=== PATIENT | female | born 1985 | race Caucasian/White ===

== ENCOUNTER 2016-05-25 07:49 | Emergency (ER) | payer OTHER ==
[~2016-05-25] VITALS: Ht 162.6 cm; Wt 86.2 kg
[~2016-05-25 07:49] MED LIST: CYCL10TA2 PO; METH4TAB2 PO; NAPR500T8 PO; PNV1TABL25 PO
[2016-05-25] MEDS ORDERED: IV NORMAL SALINE 1000ML BAG 1,000 ML IV ONE (08:00)
[2016-05-25] MEDS ORDERED: DICYCLOMINE 20 MG/2 ML AMPUL. IM ONE (08:00)
[2016-05-25] MEDS ORDERED: ONDANSETRON PF 4 MG/2 ML VIAL. IV ONE (08:00)
--- NOTE | 2016-05-25 08:06 | PHYS DOC ---
Past Medical History Past Medical History: No Pertinent History Additional Past Medical Histor: lupus,fibromyalgia, "allergy induced asthma", SAMANTHA'S DISEASE Past Surgical History: No Surgical History Additional Past Surgical Histo: tubes in ears Alcohol Use: Occasionally Drug Use: None Adult General Chief Complaint Chief Complaint: NAUSEA/VOMITING/[facility] HPI Patient is a 30 year old female presents to the emergency department with a history of upper abdominal pain and discomfort. Patient states she is nauseated , has had diarrhea since 5:30 today. She states she is having sharp pains. Had taken immodium for the diarrhea without relief. Patient states she had pizza for dinner last night, denies any family members having diarrhea. Patient denies fevers, has had chills. Patient states she has had approx. 5+ diarrhea stools with no blood noted. Review of Systems Review of Systems Constitutional: Denies fever or chills [] Eyes: Denies change in visual acuity, redness, or eye pain [] HENT: Denies nasal congestion or sore throat [] Respiratory: Denies cough or shortness of breath [] Cardiovascular: No additional information not addressed in HPI [] GI: upper abdominal pain, nausea, denies vomiting, bloody stools or diarrhea. C/ o diarrhea stools [] : Denies dysuria or hematuria [] Musculoskeletal: Denies back pain or joint pain [] Integument: Denies rash or skin lesions [] Neurologic: Denies headache, focal weakness or sensory changes [] Current Medications Current Medications Current Medications Medications (Trade) Dose Ordered Sig/Vandana Start Time Stop Time Status Last Admin Dose Admin Dicyclomine HCl (Bentyl) 10 mg 1X ONCE 05/25/16 08:00 05/25/16 08:07 DC 05/25/16 08:39 10 MG Ondansetron HCl (Zofran) 4 mg 1X ONCE 05/25/16 08:00 05/25/16 08:07 DC 05/25/16 08:39 4 MG Sodium Chloride (Iv Sodium Chloride 0.9% 1000ml Bag) 1,000 ml @ 1,000 mls/hr 1X ONCE 05/25/16 08:00 05/25/16 08:59 DC 05/25/16 08:40 1,000 MLS/HR Allergies Allergies Allergies Coded Allergies Type Severity Reaction Last Updated Verified Sulfa (Sulfonamide Antibiotics) Allergy Intermediate rash 07/18/13 Yes adhesive tape Allergy Intermediate rash 06/17/15 Yes Physical Exam Physical Exam Constitutional: Well developed, well nourished, no acute distress, non-toxic appearance. [] HENT: Normocephalic, atraumatic, bilateral external ears normal, oropharynx moist, no oral exudates, nose normal. [] Eyes: PERRLA, EOMI, conjunctiva normal, no discharge. [] Neck: Normal range of motion, no tenderness, supple, no stridor. [] Cardiovascular:Heart rate regular rhythm, no murmur [] Lungs & Thorax: Bilateral breath sounds clear to auscultation [] Abdomen: Bowel sounds hypoactive, soft, no tenderness, no masses, no pulsatile masses. No rebound tenderness, no guarding noted. Skin: Warm, dry, no erythema, no rash. [] Back: No tenderness Extremities: No tenderness, no cyanosis, no clubbing, ROM intact, no edema. [] Neurologic: Alert and oriented X 3, normal motor function, normal sensory function, no focal deficits noted. [] Psychologic: Affect normal, judgement normal, mood normal. [] Current Patient Data Vital Signs Vital Signs Date Time Temp Pulse Resp B/P Pulse Ox O2 Delivery O2 Flow Rate FiO2 05/25/16 07:55 98.3 92 20 146/66 99 Room Air 98.3 Lab Values Laboratory Tests Test 05/25/16 08:05 05/25/16 08:16 White Blood Count 12.1x10^3/uL (4.0-11.0) H Red Blood Count 5.18x10^6/uL (3.50-5.40) Hemoglobin 14.6g/dL (12.0-15.5) Hematocrit 44.8% (36.0-47.0) Mean Corpuscular Volume 86fL (79-100) Mean Corpuscular Hemoglobin 28pg (25-35) Mean Corpuscular Hemoglobin Concent 33g/dL (31-37) Red Cell Distribution Width 14.4% (11.5-14.5) Platelet Count 246x10^3/uL (140-400) Neutrophils (%) (Auto) 73% (31-73) Lymphocytes (%) (Auto) 19% (24-48) L Monocytes (%) (Auto) 7% (0-9) Eosinophils (%) (Auto) 1% (0-3) Basophils (%) (Auto) 0% (0-3) Neutrophils # (Auto) 8.9x10^3uL (1.8-7.7) H Lymphocytes # (Auto) 2.3x10^3/uL (1.0-4.8) Monocytes # (Auto) 0.8x10^3/uL (0.0-1.1) Eosinophils # (Auto) 0.1x10^3/uL (0.0-0.7) Basophils # (Auto) 0.1x10^3/uL (0.0-0.2) Sodium Level 139mmol/L (136-145) Potassium Level 5.3mmol/L (3.5-5.1) H Chloride Level 103mmol/L (98-107) Carbon Dioxide Level 24mmol/L (21-32) Anion Gap 12 (6-14) Blood Urea Nitrogen 15mg/dL (7-20) Creatinine 0.7mg/dL (0.6-1.0) Estimated GFR (Cockcroft-Gault) 99.6 BUN/Creatinine Ratio 21 (6-20) H Glucose Level 100mg/dL (70-99) H Calcium Level 9.2mg/dL (8.5-10.1) Total Bilirubin 0.3mg/dL (0.2-1.0) Aspartate Amino Transferase (AST) 33U/L (15-37) Alanine Aminotransferase (ALT) 33U/L (14-59) Alkaline Phosphatase 92U/L (46-116) Total Protein 8.3g/dL (6.4-8.2) H Albumin 3.9g/dL (3.4-5.0) Albumin/Globulin Ratio 0.9 (1.0-1.7) L Amylase Level 90U/L (25-115) Lipase 169U/L (73-393) Urine Collection Type Unknown Urine Color Yellow Urine Clarity Clear Urine pH 6.0 Urine Specific Barre <=1.005 Urine Protein Negativemg/dL (NEG-TRACE) Urine Glucose (UA) Negativemg/dL (NEG) Urine Ketones (Stick) Negativemg/dL (NEG) Urine Blood Negative (NEG) Urine Nitrite Negative (NEG) Urine Bilirubin Negative (NEG) Urine Urobilinogen Dipstick 0.2mg/dL (0.2 mg/dL) Urine Leukocyte Esterase Small (NEG) Urine RBC 0/HPF (0-2) Urine WBC 5-10/HPF (0-4) Urine Squamous Epithelial Cells Mod/LPF Urine Bacteria 0/HPF (0-FEW) Laboratory Tests 05/25/16 08:05 Laboratory Tests 05/25/16 08:05 EKG EKG EKG completed at 1010 heart rate 78 sinus rhythm noted. No STEMI per Dr. Cooley[] Radiology/Procedures Radiology/Procedures [facility] [address] [place] [address] IMAGING REPORT Signed PATIENT: AMY CARLOS ACCOUNT: [id number] : 1985 LOCATION: ER AGE: 30 SEX: F EXAM STATUS: REG ER ORD. PHYSICIAN: TIO OSULLIVAN NP REASON: upper abdominal pain with diarrhea PROCEDURE: ACUTE ABDOMEN SERIES Indication: Upper abdominal pain and diarrhea beginning early this morning. Technique: Abdominal series with PA chest radiograph was obtained. No comparison is available. Findings: The lungs are clear. The heart is not enlarged and there is no heart failure. Bony structures are intact. Leads overlie the patient. Bowel gas pattern is nonobstructive. There is no dilated bowel loop or air-fluid level. There is no free air. Leads overlie the patient. Impression: Nonobstructive bowel gas pattern. DICTATED and SIGNED BY: GABRIELA QUINN MD DATE: 05/25/16939 CC: TIO OSULLIVAN JUNIOR H[employer] TE[employer]ER; NO PCP ~ [] Course & Med Decision Making Course & Med Decision Making Pertinent Labs and Imaging studies reviewed. (See chart for details) Patient was provided with a liter of IV fluids here in the emergency department. She is provided with IV Zofran, Bentyl IM in which she states that this helped with her nausea vomiting and abdominal pain and discomfort. She did have one episode of diarrhea here in the emergency department. Potassium was slightly elevated at 5.3 although it was slightly hemolyzed. Urged home in stable condition since symptoms to return back to emergency department been provided. Patient will be sent home with Bentyl prescription and Zofran prescription. Recommended clear liquid diet for the next 24 hours. [] Dragon Disclaimer Dragon Disclaimer This electronic medical record was generated, in whole or in part, using a voice recognition dictation system. Departure Departure Impression: Primary Impression: Abdominal pain Additional Impressions: Diarrhea UTI (urinary tract infection) Disposition: 01 HOME, SELF-CARE Condition: STABLE Referrals: NO PCP (PCP) Patient Instructions: Abdominal Pain (Nonspecific), Diarrhea, [id number], Diet for Diarrhea, Adult, Urinary Tract Infection, [id number] Additional Instructions: Activity as tolerated. Medications as prescribed. Imodium may be taken [id number] for diarrhea. Clear liquid diet for the next 24 hours. Drink plenty of fluids such as water or cranberry juice, propel or Gatorade. Avoid primary juice cocktail, carbonate beverages, citrus fruits and alcohol sees her considered irritants to the bladder. Follow-up to primary care physician next 5-7 days. Return back to emergency prior signs symptoms of become worse. Scripts Ondansetron (Zofran Odt)4 Mg Tab.rapdis1 Tab SL Q8HRS PRN NAUSEA/VOMITING #10 TAB Prov:TIO OSULLIVAN NP 05/25/16 Dicyclomine Hcl (Bentyl)10 Mg Capsule1 Cap PO TID PRN STOMACH CRAMPING #30 CAP Prov:TIO OSULLIVAN NP 05/25/16 Nitrofurantoin Monohyd/M-Cryst (Macrobid 100 Mg Capsule)100 Mg Capsule1 Cap PO BID #14 CAP Prov:TIO OSULLIVAN NP 05/25/16 Problem Qualifiers TIO OSULLIVAN NP May 25, 2016 08:06
[2016-05-25 08:17] LABS: BASO # 0.1 x10^3/uL (0.0-0.2); BASO % 0 % (0-3); EOS % 1 % (0-3); HEMATOCRIT 44.8 % (36.0-47.0); HEMOGLOBIN 14.6 g/dL (12.0-15.5); LYMPH # 2.3 x10^3/uL (1.0-4.8); LYMPH % 19 % (24-48); MEAN CORPUSCULAR HEMOGLOBIN 28 pg (25-35); MEAN CORPUSCULAR HGB CONC 33 g/dL (31-37); MEAN CORPUSCULAR VOLUME 86 fL (79-100); MONO % 7 % (0-9); NEUT % 73 % (31-73); PLATELET COUNT 246 x10^3/uL (140-400); RED BLOOD COUNT 5.18 x10^6/uL (3.50-5.40); RED CELL DISTRIBUTION WIDTH 14.4 % (11.5-14.5); WHITE BLOOD COUNT 12.1 x10^3/uL (4.0-11.0)
[2016-05-25 08:26] LABS: BILIRUBIN,URINE NEGATIVE (NEG); GLUCOSE,URINE NEGATIVE (NEG); NITRITE,URINE NEGATIVE (NEG); PROTEIN,URINE NEGATIVE (NEG-TRACE); UROBILINOGEN,URINE 0.2 mg/dL (0.2 mg/dL)
[2016-05-25 08:32] LABS: CALCIUM 9.2 mg/dL (8.5-10.1); CREATININE 0.7 mg/dL (0.6-1.0); GFR 99.6
[2016-05-25 08:38] LABS: ALBUMIN 3.9 g/dL (3.4-5.0); ALBUMIN/GLOBULIN RATIO 0.9 (1.0-1.7); POTASSIUM 5.3 mmol/L (3.5-5.1); TOTAL BILIRUBIN 0.3 mg/dL (0.2-1.0); TOTAL PROTEIN 8.3 g/dL (6.4-8.2)
[2016-05-25 08:44] LABS: BACTERIA,URINE 0 /HPF (0-FEW); RBC,URINE 0 /HPF (0-2); SQUAMOUS EPITHELIAL CELL,UR MOD /LPF
--- NOTE | 2016-05-25 09:45 | RAD ---
Indication: Upper abdominal pain and diarrhea beginning early this morning. Technique: Abdominal series with PA chest radiograph was obtained. No comparison is available. Findings: The lungs are clear. The heart is not enlarged and there is no heart failure. Bony structures are intact. Leads overlie the patient. Bowel gas pattern is nonobstructive. There is no dilated bowel loop or air-fluid level. There is no free air. Leads overlie the patient. Impression: Nonobstructive bowel gas pattern.
[2016-05-25 10:00] VITALS: BP 119/64
[2016-05-25] MEDS ORDERED: DICY10CA53 PO (10:10)
[2016-05-25] MEDS ORDERED: ONDA4TAB10 SL (10:10)
[2016-05-25] MEDS ORDERED: NITR100C62 PO (10:10)
--- NOTE | 2016-05-25 10:30 | EKG ---
[facility] [address] [place] [address] Test Date: 2016-05-25 Test Time: 10:10:54 Pat Name: AMY CARLOS Department: Room: Gender: F Junior [employer]or: : 1985 Requested By: TIO OSULLIVAN Order Number: [id number] Reading MD: Judie Ayala Measurements Intervals [place] Rate: 78 P: 19 [place]: 172 QRS: -1 QRSD: 98 T: 20 QT: 370 QTc: 425 Interpretive Statements SINUS RHYTHM LEFTWARD AXIS RI6.01 Unconfirmed report No previous ECG available for comparison Electronically Signed On 05-27-2016 10:51:18 CDT by Judie Ayala
== END 2016-05-25 10:25 | disposition home or self-care (01) ==
LOC: ER 07:49
DX: R10.10 Upper abdominal pain, unspecified (principal); R19.7 Diarrhea, unspecified; N39.0 Urinary tract infection, site not specified; M79.7 Fibromyalgia; Z88.2 Allergy status to sulfonamides; J45.909 Unspecified asthma, uncomplicated; Z91.048 Other nonmedicinal substance allergy status
CPT/HCPCS: 36415; 74022; 80053; 81001; 81025; 82150; 83690; 85027; 93005; 96361; 96372; 96374; 99285; J0500; J2405; J7030; 87086

== ENCOUNTER 2016-06-08 01:33 | Emergency (ER) | payer OTHER ==
[~2016-06-08] VITALS: Ht 160 cm; Wt 90.7 kg
[~2016-06-08 01:33] MED LIST changes: +DICY10CA53 PO; +NITR100C62 PO; +ONDA4TAB10 SL
[2016-06-08 01:40] VITALS: BP 130/69
--- NOTE | 2016-06-08 02:00 | PHYS DOC ---
Past Medical History Past Medical History: Anxiety, Bipolar, Depression, Fibromyalgia Additional Past Medical Histor: lupus, SAMANTHA'S DISEASE manic depression Past Surgical History: Tubal ligation Additional Past Surgical Histo: tubes in ears Alcohol Use: Occasionally Drug Use: None Adult General Chief Complaint Chief Complaint: SORE THROAT HPI HPI Patient is a 31 year old female who presents with complaint of sore throat. Patient states her symptoms started 4 days ago. Patient states that she has had progressively worsening sore throat and difficulty swallowing secondary to pain. Patient denies any shortness of breath. Patient states that she has had subjective fevers but has not measured a temperature at home. Patient has been taking ibuprofen and Tylenol with minimal relief in symptoms. Patient denies cough or shortness of breath. Review of Systems Review of Systems Constitutional: Fever [] Eyes: Denies change in visual acuity, redness, or eye pain [] HENT: Sore throat [] Respiratory: Denies cough or shortness of breath [] Cardiovascular: Denies chest pain or edema [] GI: Denies abdominal pain, nausea, vomiting, bloody stools or diarrhea [] : Denies dysuria or hematuria [] Musculoskeletal: Denies back pain or joint pain [] Integument: Denies rash or skin lesions [] Neurologic: Denies headache, focal weakness or sensory changes [] Current Medications Current Medications Current Medications Medications (Trade) Dose Ordered Sig/Vandana Start Time Stop Time Status Last Admin Dose Admin Dexamethasone Sodium Phosphate (Decadron) 12 mg 1X ONCE 06/08/16 02:15 06/08/16 02:16 Penicillin G Benzathine (Bicillin L-A) 1,200,000 unit 1X ONCE 06/08/16 02:15 06/08/16 02:16 Allergies Allergies Allergies Coded Allergies Type Severity Reaction Last Updated Verified Sulfa (Sulfonamide Antibiotics) Allergy Intermediate rash 07/18/13 Yes adhesive tape Allergy Intermediate rash 06/17/15 Yes Physical Exam Physical Exam Constitutional: Alert, febrile, appears in mild discomfort. [] HENT: Normocephalic, atraumatic, bilateral external ears normal, oropharynx moist, tonsillar swelling, erythema, and tonsillar exudates present, petechial hemorrhages on soft palate, nose normal. [] Eyes: PERRLA, EOMI, conjunctiva normal, no discharge. [] Neck: Normal range of motion, tender anterior cervical lymphadenopathy present, supple, no stridor. [] Cardiovascular:Heart rate regular rhythm, no murmur [] Lungs & Thorax: Bilateral breath sounds clear to auscultation [] Abdomen: Bowel sounds normal, soft, no tenderness, no masses, no pulsatile masses. [] Skin: Warm, dry, no erythema, no rash. [] Extremities: No tenderness, no cyanosis, no clubbing, ROM intact, no edema. [] Neurologic: Alert and oriented X 3, normal motor function, normal sensory function, no focal deficits noted. [] Current Patient Data Vital Signs Vital Signs Date Time Temp Pulse Resp B/P Pulse Ox O2 Delivery O2 Flow Rate FiO2 06/08/16 01:40 100.3 93 18 99 Room Air 100.3 EKG EKG Not performed [] Radiology/Procedures Radiology/Procedures Not performed [] Course & Med Decision Making Course & Med Decision Making Pertinent Labs and Imaging studies reviewed. (See chart for details) Patient's rapid strep test was positive. Patient was treated with Bicillin LA injection as well as Decadron in the emergency department. Advised patient to continue with Tylenol and ibuprofen as well as saltwater gargles and warm fluids to help with sore throat symptoms. Advise follow-up in 5 days with primary doctor if symptoms are not improving and return to emergency department for any worsening symptoms. Patient voiced understanding and in agreement with treatment plan. [] Dragon Disclaimer Dragon Disclaimer This electronic medical record was generated, in whole or in part, using a voice recognition dictation system. Departure Departure Impression: Primary Impression: Strep pharyngitis Disposition: HOME, SELF-CARE Condition: IMPROVED Referrals: NO PCP (PCP) Patient Instructions: Strep Throat Additional Instructions: You were treated with Bicillin for your strep throat in the emergency department. You will not require any further antibiotic treatment. Continue use of ibuprofen and Tylenol as needed for fever and sore throat. Follow-up with your primary doctor in 5 days if symptoms are not improving. Return to the emergency department for any worsening symptoms. JELLY CANTU MD Jun 08, 2016 02:00
[2016-06-08] MEDS ORDERED: DEXAMETHASONE SOD PHOS 4 MG/ML VIAL IM ONE (02:15)
[2016-06-08] MEDS ORDERED: PENICILLIN G BENZATHINE LA 1,200,000 UNIT/2 ML DISP.SYRIN. IM ONE (02:15)
[2016-06-08 09:16] LABS: NEGATIVE OBC STREP NEG; POSITIVE OBC STREP POS
== END 2016-06-08 02:30 | disposition home or self-care (01) ==
LOC: ER 01:40
DX: J02.0 Streptococcal pharyngitis (principal); F31.9 Bipolar disorder, unspecified; M79.7 Fibromyalgia; M32.9 Systemic lupus erythematosus, unspecified; G10 Huntington's disease; Z88.2 Allergy status to sulfonamides; Z91.048 Other nonmedicinal substance allergy status
CPT/HCPCS: 87880; 96372; 99284; J0561; J1100

== ENCOUNTER 2016-08-31 09:55 | Emergency (ER) | payer OTHER ==
[~2016-08-31] VITALS: Ht 160 cm; Wt 95.3 kg
[2016-08-31 10:05] VITALS: BP 146/81
[2016-08-31] MEDS ORDERED: NAPR500T PO (10:11)
[2016-08-31] MEDS ORDERED: CYCL10TA2 PO (10:11)
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
== END 2016-08-31 10:23 | disposition home or self-care (01) ==
LOC: ER 09:55
DX: M25.512 Pain in left shoulder (principal); G89.29 Other chronic pain; F31.9 Bipolar disorder, unspecified; M79.7 Fibromyalgia; G10 Huntington's disease; M32.9 Systemic lupus erythematosus, unspecified; Z88.2 Allergy status to sulfonamides; Z88.8 Allergy status to other drugs, medicaments and biological substances; V49.49XA Driver injured in collision with other motor vehicles in traffic accident, initial encounter; Y93.89 Activity, other specified; Y99.8 Other external cause status; Y92.488 Other paved roadways as the place of occurrence of the external cause
CPT/HCPCS: 99283

== ENCOUNTER 2017-01-01 11:27 | Emergency (ER) | payer OTHER ==
[~2017-01-01] VITALS: Ht 160 cm; Wt 95.3 kg
[~2017-01-01 11:27] MED LIST changes: +NAPR500T PO
--- NOTE | 2017-01-01 12:07 | PHYS DOC ---
Past Medical History Past Medical History: Anxiety, Bipolar Additional Past Medical Histor: manic depression Past Surgical History: Tubal ligation Additional Past Surgical Histo: tubes in ears Alcohol Use: Rarely Drug Use: None Adult General Chief Complaint Chief Complaint: ANKLE PROBLEM HPI HPI Patient is a 31 year old female with history of bipolar and anxiety who presents today complaining of bilateral ankle swelling that began yesterday. Patient states she works at [employer] and is on her feet for long hours. Patient states similar bilateral ankle swelling happened 1 year ago and she was put on a water pill for a couple days. Patient states her PCP Dr. Palomino is out of town. Patient is requesting to be put on a water pill. Patient denies any history of hypertension or heart failure. Denies any chest pain or shortness of breath. PCP Dr. Palomino. Review of Systems Review of Systems Constitutional: Denies fever or chills [] Eyes: Denies change in visual acuity, redness, or eye pain [] HENT: Denies nasal congestion or sore throat [] Respiratory: Denies cough or shortness of breath [] Cardiovascular: No additional information not addressed in HPI [] GI: Denies abdominal pain, nausea, vomiting, bloody stools or diarrhea [] : Denies dysuria or hematuria [] Musculoskeletal: ankle swelling. Denies back pain or joint pain [] Integument: Denies rash or skin lesions [] Neurologic: Denies headache, focal weakness or sensory changes [] Endocrine: Denies polyuria or polydipsia [] Allergies Allergies Allergies Coded Allergies Type Severity Reaction Last Updated Verified Sulfa (Sulfonamide Antibiotics) Allergy Intermediate rash 07/18/13 Yes adhesive tape Allergy Intermediate rash 06/17/15 Yes Physical Exam Physical Exam Constitutional: Well developed, well nourished, no acute distress, non-toxic appearance. [] HENT: Normocephalic, atraumatic, bilateral external ears normal, oropharynx moist, no oral exudates, nose normal. [] Eyes: PERRLA, EOMI, conjunctiva normal, no discharge. [] Neck: Normal range of motion, no tenderness, supple, no stridor. [] Cardiovascular:Heart rate regular rhythm, no murmur [] Lungs & Thorax: Bilateral breath sounds clear to auscultation [] Abdomen: Bowel sounds normal, soft, no tenderness, no masses, no pulsatile masses. [] Skin: Warm, dry, no erythema, no rash. [] Back: No tenderness, no CVA tenderness. [] Extremities: No tenderness, no cyanosis, no clubbing, ROM intact,trace bilateral ankle swelling. Neurologic: Alert and oriented X 3, normal motor function, normal sensory function, no focal deficits noted. [] Psychologic: Affect normal, judgement normal, mood normal. [] Current Patient Data Vital Signs Vital Signs Date Time Temp Pulse Resp B/P (MAP) Pulse Ox O2 Delivery O2 Flow Rate FiO2 01/01/17 11:39 97.5 98 18 138/78 (98) 97 Room Air 97.5 Lab Values Laboratory Tests Test 01/01/17 12:03 POC Hemoglobin 15.3 g/dL (12-15) H POC Hematocrit 45 % (36-40) H POC Sodium 140 mmol/L (135-145) POC Potassium 4.0 mmol/L (3.5-5.0) POC Chloride 103 mmol/L (98-110) POC Total CO2 25 mmol/L (23-32) Anion Gap 17 mmol/L (6-14) H POC Blood Urea Nitrogen 11 mg/dL (8-26) POC Creatinine 0.8 mg/dL (0.5-1.4) Glucose Level 96 mg/dL (70-99) POC Ionized Calcium (Lata) 1.16 mmol/L (1.13-1.32) Laboratory Tests 01/01/17 12:03 EKG EKG [] Radiology/Procedures Radiology/Procedures [] Course & Med Decision Making Course & Med Decision Making Pertinent Labs and Imaging studies reviewed. (See chart for details) This is a 31-year-old female patient presenting to the ED today complaining of ankle swelling since yesterday. She stands on her feet for long hours at work. She is requesting a water pill because the last time she had similar swelling she was given a water pill by her doctor. Chem 8 is normal. Blood pressure is 138/78. Patient is in no distress. She has small amount of swelling to her ankles. I recommended elevation. Recommended SAM hose. She still insisted on getting a water pill. Gave HCTZ 12.5 mg 7 tablets. Instructed her to follow-up with her PCP next week. She states her PCP is out of town until then. She was provided return precautions and discharged in stable condition. Werner Disclaimer [place] Disclaimer This electronic medical record was generated, in whole or in part, using a voice recognition dictation system. Departure Departure Impression: Primary Impression: Lower extremity edema Disposition: 01 HOME, SELF-CARE Condition: STABLE Referrals: BRITTANY PALOMINO JR, MD (PCP) follow up next week Patient Instructions: Edema, [id number] Additional Instructions: You were seen for lower extremity swelling. This is not unusual especially for people who work for long hours standing on their feet. Consider wearing SAM hose especially when you are at work. Consider elevating your feet above your heart when laying down. We put you on a low dose water pill for 7 days only. You have to follow-up with your doctor next week and see if they want to keep you on the water pill. Scripts Hydrochlorothiazide (HYDROCHLOROTHIAZIDE TABLET) 12.5 Mg Tablet 1 TAB PO DAILY, #7 TAB 0 Refills Prov: AZAEL THOMPSON APRN 01/01/17 AZAEL THOMPSON APRN Jan 01, 2017 12:07
[2017-01-01] MEDS ORDERED: HYDR12.58 PO (12:22)
[2017-01-01 12:24] VITALS: BP 131/79
== END 2017-01-01 12:28 | disposition home or self-care (01) ==
LOC: ER 11:27
DX: R60.0 Localized edema (principal); F31.9 Bipolar disorder, unspecified; F41.9 Anxiety disorder, unspecified; Z88.2 Allergy status to sulfonamides; Z91.048 Other nonmedicinal substance allergy status
CPT/HCPCS: 80047; 85014; 85018; 99283

== ENCOUNTER 2017-01-23 | Emergency (ER) | payer OTHER ==
[~2017-01-23] VITALS: Ht 160 cm; Wt 90.7 kg
[~2017-01-23] MED LIST changes: +HYDR12.58 PO
[2017-01-23 00:36] VITALS: BP 118/80
[2017-01-23] MEDS ORDERED: IBUP-1060 PO (00:50)
[2017-01-23] MEDS ORDERED: CYCL10TA2 PO (00:50)
--- NOTE | 2017-01-23 00:50 | PHYS DOC ---
Past Medical History Past Medical History: Anxiety, Bipolar Additional Past Medical Histor: manic depression Past Surgical History: Tubal ligation Additional Past Surgical Histo: tubes in ears Alcohol Use: None Drug Use: None Adult General Chief Complaint Chief Complaint: BACK INJURY HPI HPI Patient is a 31 year old female who presents with complaint of back pain. Patient states that at approximately 9:00 this evening the patient was working with self-propelled equipment that was malfunctioning. Patient states while she was trying to get the equipment to work, it moved suddenly and caused a quick jerking motion while she was holding it. Patient states that this caused her to injure her back. Patient states initially she had mild pain, however her pain worsened progressively over approximately one and a half hours time. The patient went to see the work provider who stated that she could either return to work or be seen in the emergency department for further evaluation. Patient chose to come to the emergency department because of her worsening pain. Patient states the pain starts in her upper back and travels towards her mid and lower back. Patient describes the pain as significant tightness. Patient states she took Tylenol, ibuprofen, and has applied heat to the area with no improvement in symptoms. Patient rates her pain as 8 out of 10. Patient states that it worsens when she tries to move. Patient denies any radicular pain, loss of feeling to groin, loss of bowel or bladder control, or foot drop. Review of Systems Review of Systems Constitutional: Denies fever or chills [] Eyes: Denies change in visual acuity, redness, or eye pain [] HENT: Denies nasal congestion or sore throat [] Respiratory: Denies cough or shortness of breath [] Cardiovascular: Denies chest pain or edema[] GI: Denies abdominal pain, nausea, vomiting, bloody stools or diarrhea [] : Denies dysuria or hematuria [] Musculoskeletal: Back pain[] Integument: Denies rash or skin lesions [] Neurologic: Denies headache, focal weakness or sensory changes [] All other systems were reviewed and found to be within normal limits, except as documented in this note. Allergies Allergies Allergies Coded Allergies Type Severity Reaction Last Updated Verified Sulfa (Sulfonamide Antibiotics) Allergy Intermediate rash 07/18/13 Yes adhesive tape Allergy Intermediate rash 06/17/15 Yes Physical Exam Physical Exam Constitutional: Alert, afebrile, appears in mild to moderate discomfort. [] HENT: Normocephalic, atraumatic, bilateral external ears normal, oropharynx moist, no oral exudates, nose normal. [] Eyes: PERRLA, EOMI, conjunctiva normal, no discharge. [] Neck: Normal range of motion, no tenderness, supple, no stridor. [] Cardiovascular:Heart rate regular rhythm, no murmur [] Lungs & Thorax: Bilateral breath sounds clear to auscultation [] Abdomen: Bowel sounds normal, soft, no tenderness, no masses, no pulsatile masses. [] Skin: Warm, dry, no erythema, no rash. [] Back: No midline tenderness, bilateral paraspinous muscle tenderness along mid thoracic and upper lumbar spine, negative straight leg test. [] Extremities: No tenderness, no cyanosis, no clubbing, ROM intact, no edema. [] Neurologic: Alert and oriented X 3, normal motor function, normal sensory function, no focal deficits noted. [] Current Patient Data Vital Signs Vital Signs Date Time Temp Pulse Resp B/P (MAP) Pulse Ox O2 Delivery O2 Flow Rate FiO2 01/23/17 00:01 98.3 92 16 111/68 (82) 98 98.3 Lab Values Not performed EKG EKG Not performed[] Radiology/Procedures Radiology/Procedures Not performed[] Course & Med Decision Making Course & Med Decision Making Pertinent Labs and Imaging studies reviewed. (See chart for details) Patient's symptoms are consistent with acute back strain. The patient was given Flexeril in the emergency department. The patient will continue on Flexeril and ibuprofen for treatment of her back strain. Advised patient against any heavy lifting greater than 5-10 pounds and advised no bending over or stooping until symptoms improve. Advised follow-up with primary doctor in 3 days for reevaluation. Advised return emergency department for any worsening symptoms. Patient voiced understanding and in agreement with treatment plan. Dragon Disclaimer Dragon Disclaimer This electronic medical record was generated, in whole or in part, using a voice recognition dictation system. Departure Departure Impression: Primary Impression: Back strain Disposition: HOME, SELF-CARE Condition: IMPROVED Referrals: BRITTANY MORNA JR, MD (PCP) Patient Instructions: Muscle Strain Additional Instructions: Follow-up with your primary doctor in the next 3 days for reevaluation. Return to emergency department for any worsening symptoms. Scripts Ibuprofen (IBUPROFEN) 800 Mg Tablet 800 MG PO Q8HRS Y for PAIN, #30 TAB Prov: JELLY CANTU MD 01/23/17 Cyclobenzaprine Hcl (CYCLOBENZAPRINE HCL) 10 Mg Tablet 1 TAB PO TID Y for MUSCLE SPASMS, #20 TAB Prov: JELLY CANTU MD 01/23/17 Problem Qualifiers Primary Impression: Back strain Encounter type: initial encounter Qualified Codes: S39.012A - Strain of muscle, fascia and tendon of lower back, initial encounter JELLY CANTU MD Jan 23, 2017 00:50
[2017-01-23] MEDS ORDERED: CYCLOBENZAPRINE 10 MG TABLET. PO ONE (01:00)
== END 2017-01-23 01:05 | disposition home or self-care (01) ==
LOC: ER
DX: S39.012A Strain of muscle, fascia and tendon of lower back, initial encounter (principal); M54.6 Pain in thoracic spine; F31.9 Bipolar disorder, unspecified; Z88.2 Allergy status to sulfonamides; Z88.8 Allergy status to other drugs, medicaments and biological substances; X50.9XXA Other and unspecified overexertion or strenuous movements or postures, initial encounter; Y93.89 Activity, other specified; Y99.8 Other external cause status; Y92.89 Other specified places as the place of occurrence of the external cause
CPT/HCPCS: 99283

== ENCOUNTER 2018-01-01 12:27 | Emergency (ER) | payer OTHER ==
[~2018-01-01] VITALS: Ht 160 cm; Wt 95.3 kg
[~2018-01-01 12:27] MED LIST changes: +IBUP-1060 PO; +NAPR-683 PO; -NAPR500T PO
--- NOTE | 2018-01-01 12:46 | PHYS DOC ---
Past Medical History Past Medical History: Anxiety, Bipolar Additional Past Medical Histor: manic depression Past Surgical History: Tubal ligation Additional Past Surgical Histo: tubes in ears Alcohol Use: None Drug Use: None Adult General Chief Complaint Chief Complaint: UPPER EXTREMITY PAIN [facility] HPI Patient is a 32 year old female who presents with right upper extremity injury. Patient was moving a large piece of furniture when she somehow lost control and the pressure came down landing on her right elbow and right wrist. She complains of pain in those areas. Denies numbness or tingling or weakness. No additional injuries. Review of Systems Review of Systems Constitutional: Denies fever Respiratory: Denies Cardiovascular: No additional information not addressed in HPI Musculoskeletal: Denies back pain Integument: Denies rash or skin lesions All other systems were reviewed and found to be within normal limits, except as documented in this note. Allergies Allergies Allergies Coded Allergies Type Severity Reaction Last Updated Verified Sulfa (Sulfonamide Antibiotics) Allergy Intermediate rash 07/18/13 Yes adhesive tape Allergy Intermediate rash 06/17/15 Yes Physical Exam Physical Exam Constitutional: Well developed, well nourished, no acute distress HENT: Normocephalic, atraumatic, bilateral external ears normal, oropharynx moist Eyes: PERRLA Cardiovascular:Heart rate regular rhythm, no murmur Lungs & Thorax: Bilateral breath sounds clear to auscultation Skin: Warm, dry, no erythema, no rash Extremities: Point tenderness over the dorsal aspect of the right wrist as well as the lateral aspect of the right elbow. 2+ radial pulses. Sensation light touch is intact over all dermatomes. Neurologic: Alert and oriented X 3, normal motor function, normal sensory function, no focal deficits noted Psychologic: Affect normal, judgement normal Current Patient Data Vital Signs Vital Signs Date Time Temp Pulse Resp B/P (MAP) Pulse Ox O2 Delivery O2 Flow Rate FiO2 01/01/18 14:05 98.2 82 16 112/74 (87) 98 98.2 01/01/18 12:30 Room Air EKG EKG [] Radiology/Procedures Radiology/Procedures Plain film x-ray of the wrist and elbow are completed and are negative for acute findings. Course & Med Decision Making Course & Med Decision Making Pertinent Labs and Imaging studies reviewed. (See chart for details) Patient was evaluated in the ER for minor injury to the right forearm. There were no acute findings on x-ray. Patient was discharged home with some pain medication. Advised to come back to the ER for any new or worsening concerns. X-rays are negative. The patient was discharged home with some pain medications. She is advised to follow-up with her primary care doctor or come back to the ER for any new or worsening symptoms. Dragon Disclaimer Dragon Disclaimer This electronic medical record was generated, in whole or in part, using a voice recognition dictation system. Departure Departure Referrals: BRITTANY MORAN JR, MD (PCP) Scripts Hydrocodone/Apap 5-325 (NORCO 5-325 TABLET) 1 Each Tablet 1-2 EACH PO PRN Q6HRS PRN for SEVERE PAIN, #15 as needed for pain Prov: JOSE ARMANDO MAN DO 01/01/18 JOSE ARMANDO MAN DO Jan 01, 2018 12:46
--- NOTE | 2018-01-01 13:11 | RAD ---
WRIST 3V RIGHT, ELBOW RIGHT 2V (elbow AP and lateral, wrist PA, oblique, lateral) INDICATION: right wrist and elbow pain after furniture fell on arm COMPARISON: Right wrist radiographs dated 10/16/2014 ELBOW FINDINGS: No acute fracture or malalignment. The joint spaces are maintained. Bony mineralization is normal for the patient's age. No significant soft tissue abnormality. No radiopaque foreign body. WRIST FINDINGS: No acute fracture or malalignment. The joint spaces are maintained. Bony mineralization is normal for the patient's age. No significant soft tissue abnormality. No radiopaque foreign body. IMPRESSION: No acute fracture or malalignment. Electronically signed by: Glen Kaur MD (01/01/2018 1:07 PM) [facility]
[2018-01-01] MEDS ORDERED: HYDR-971 PO (13:53)
[2018-01-01 14:05] VITALS: BP 112/74
== END 2018-01-01 14:06 | disposition home or self-care (01) ==
LOC: ER 12:27
DX: S69.91XA Unspecified injury of right wrist, hand and finger(s), initial encounter (principal); S59.901A Unspecified injury of right elbow, initial encounter; F31.9 Bipolar disorder, unspecified; F41.9 Anxiety disorder, unspecified; Z88.2 Allergy status to sulfonamides; Z88.8 Allergy status to other drugs, medicaments and biological substances; X50.3XXA Overexertion from repetitive movements, initial encounter; Y93.89 Activity, other specified; Y92.89 Other specified places as the place of occurrence of the external cause; Y99.8 Other external cause status
CPT/HCPCS: 73070; 73110; 99284

== ENCOUNTER 2018-04-29 08:30 | Emergency (ER) | payer MEDICAID, OTHER ==
[~2018-04-29] VITALS: Ht 160 cm; Wt 90.7 kg
[~2018-04-29 08:30] MED LIST changes: +HYDR-3164 PO
[2018-04-29] MEDS ORDERED: IBUPROFEN 400 MG TABLET. PO ONE (09:15)
--- NOTE | 2018-04-29 09:21 | PHYS DOC ---
Past Medical History Past Medical History: Anxiety, Bipolar, Other Additional Past Medical Histor: manic depression Past Surgical History: Tubal ligation, Other Additional Past Surgical Histo: tubes in ears Additional Information: 0.5 PPD Alcohol Use: Occasionally Drug Use: None Adult General Chief Complaint Chief Complaint: SORE THROAT HPI HPI Patient is a 32 year old female who presents with sore throat and headache for the past 24 hours. Patient states she is not taking any medications today. Patient rates her pain 8 out of 10 and states that it aching and stabbing pain. Review of Systems Review of Systems Constitutional: Denies fever or chills [] Eyes: Denies change in visual acuity, redness, or eye pain [] HENT: Denies nasal congestion. sore throat and ears itchy[] Respiratory: Denies cough or shortness of breath [] Cardiovascular: No additional information not addressed in HPI [] GI: Denies abdominal pain, nausea, vomiting, bloody stools or diarrhea [] : Denies dysuria or hematuria [] Musculoskeletal: Denies back pain or joint pain [] Integument: Denies rash or skin lesions [] Neurologic: headache, denies focal weakness or sensory changes [] All other systems were reviewed and found to be within normal limits, except as documented in this note. Current Medications Current Medications Current Medications Medications (Trade) Dose Ordered Sig/Vandana Start Time Stop Time Status Last Admin Dose Admin Ibuprofen (Motrin) 800 mg 1X ONCE 04/29/18 09:15 04/29/18 09:17 DC 04/29/18 09:29 800 MG Allergies Allergies Allergies Coded Allergies Type Severity Reaction Last Updated Verified Sulfa (Sulfonamide Antibiotics) Allergy Intermediate rash 07/18/13 Yes adhesive tape Allergy Intermediate rash 06/17/15 Yes Physical Exam Physical Exam Constitutional: Well developed, well nourished, no acute distress, non-toxic appearance. [] HENT: Normocephalic, atraumatic, bilateral external ears normal, oropharynx moist, Right tonsil oral exudates, nose normal. Bilateral tympanics boggy. Bilateral tonsils swollen. [] Eyes: PERRLA, EOMI, conjunctiva normal, no discharge. [] Neck: Normal range of motion, no tenderness, supple, no stridor. [] Cardiovascular:Heart rate regular rhythm, no murmur [] Lungs & Thorax: Bilateral breath sounds clear to auscultation [] Abdomen: Bowel sounds normal, soft, no tenderness, no masses, no pulsatile masses. [] Skin: Warm, dry, no erythema, no rash. [] Back: No tenderness, no CVA tenderness. [] Extremities: No tenderness, no cyanosis, no clubbing, ROM intact, no edema. [] Neurologic: Alert and oriented X 3, normal motor function, normal sensory function, no focal deficits noted. [] Psychologic: Affect normal, judgement normal, mood normal. [] Current Patient Data Vital Signs Vital Signs Date Time Temp Pulse Resp B/P (MAP) Pulse Ox O2 Delivery O2 Flow Rate FiO2 04/29/18 08:50 100.2 102 20 139/77 (97) 99 Room Air 100.2 EKG EKG [] Radiology/Procedures Radiology/Procedures [] Course & Med Decision Making Course & Med Decision Making Patient is a 32 year old female who presents with sore throat and headache for the past 24 hours. Patient states she is not taking any medications today. Patient rates her pain 8 out of 10 and states that it aching and stabbing pain. Alert and oriented. Skin pink warm and dry. Mucous membranes are moist. Patient denies nausea, vomiting, diarrhea, dizziness, chest pain, cough, body aches. Patient's throat is reddened and tonsils are swollen bilaterally. There looks to be area of exudate on the right tonsil. Patient denies any trouble breathing and her lungs are clear to auscultation in all lobes. Patient speaks in full clear sentences. Temperature 100.2. She is given ibuprofen in the ED for pain. She is to follow-up with her primary care provider and take medications as prescribed. Strep positive. Dragon Disclaimer Dragon Disclaimer This electronic medical record was generated, in whole or in part, using a voice recognition dictation system. Departure Departure Impression: Primary Impression: Strep pharyngitis Disposition: 01 HOME, SELF-CARE Condition: STABLE Referrals: BRITTANY MORAN JR, MD (PCP) Patient Instructions: Strep Throat Additional Instructions: Follow up with primary care provider. Take medications as prescribed. Drink plenty of fluids. Scripts Amoxicillin (AMOXICILLIN) 500 Mg Tablet 500 MG PO BID for 10 Days, #20 TAB 0 Refills Prov: TIO COVARRUBIAS APRN 04/29/18 TIO COVARRUBIAS APRN Apr 29, 2018 09:21
[2018-04-29] MEDS ORDERED: AMOX500T PO (09:37)
[2018-04-29 10:06] VITALS: BP 122/77
== END 2018-04-29 10:06 | disposition home or self-care (01) ==
LOC: ER 08:30
DX: J02.0 Streptococcal pharyngitis (principal); R51 Headache; B95.0 Streptococcus, group A, as the cause of diseases classified elsewhere; F31.9 Bipolar disorder, unspecified; F17.200 Nicotine dependence, unspecified, uncomplicated; Z88.2 Allergy status to sulfonamides; Z88.8 Allergy status to other drugs, medicaments and biological substances
CPT/HCPCS: 87880; 99283